=== PATIENT | male | born 1950 | race Caucasian/White ===

== ENCOUNTER 2020-08-20 09:36 | Emergency (ER) | payer MEDICARE, MEDICAID ==
[~2020-08-20] VITALS: Ht 182.9 cm; Wt 118.2 kg
[~2020-08-20 09:36] MED LIST: FENO150C3 PO; GABA-585 PO; HYDR-2769 PO; INSU100I13 SQ; INSU100I17 SQ; INSU100I27 SQ; MAGN400C PO; METF500T16 PO; METO-239 PO
--- NOTE | 2020-08-20 10:04 | PHYS DOC ---
Past History Past Medical History: Diabetes, Hypertension Past Surgical History: No Surgical History Alcohol Use: None Drug Use: None General Adult EDM: Chief Complaint: MULTIPLE COMPLAINTS HPI: HPI: Patient is a 70 male coming in for bilateral flank pain that woke him sleep this morning. Patient states is not the strength as he has been dehydrated. She tried drinking a glass of water without improvement. Straight back pain or problems. No recent injuries. Denies any dysuria, hematuria, urinary frequency. Has any fevers, cough, chest pain. Had one episode of emesis this morning but denies any diarrhea constipation. Denies any history of kidney stones or kidney infections. Patient later stated that he has had couple of weeks of vomiting. States he has been seen a couple of other times for dehydration. Review of Systems: Review of Systems: All other systems within normal limits except for as noted in the HPI Allergies: Allergies: Allergies Coded Allergies Type Severity Reaction Last Updated Verified No Known Drug Allergies 08/20/20 No Physical Exam: PE: Constitutional: Well developed, well nourished, no acute distress, non-toxic appearance. [] HENT: Normocephalic, atraumatic, bilateral external ears normal, nose normal. [] Eyes: PERRLA, conjunctiva normal, no discharge. [] Neck: No rigidity, supple, no stridor. [] Cardiovascular: Regular rate and rhythm, brisk cap refill [] Lungs & Thorax: Non labored symmetric respirations, no tachypnea or respiratory distress [] Abdomen: Soft, nondistended. Skin: Warm, dry, no erythema, no rash. [] Back: Unremarkable, bilateral CVA tenderness, no point spinal tenderness, no step-off or deformity. Extremities: No deformities, range of motion grossly intact, no lower extremity edema [] Neurologic: Alert and oriented X 3, no focal deficits noted. [] Psychologic: Affect normal, judgement normal, mood normal. [] EKG: EKG: Sinus tachycardia, heart rate 112 bpm, right axis deviation, no ST elevation or depression, bundle-branch block. [] Radiology/Procedures: Radiology/Procedures: ADDENDUM ADDENDUM #1 Addendum: As noted in the findings section of the report, there is chol elithiasis. Electronically signed by: Kate Olvera MD (08/20/2020 1:32 PM) [facility] ORIGINAL REPORT EXAM: Abdomen and pelvis CT with intravenous contrast. HISTORY: Pancreatitis. TECHNIQUE: Computed tomographic images of the abdomen and pelvis were obtained following the administration of intravenous contrast. Multiplanar reformatting was performed. *One or more of the following individualized dose reduction techniques were utilized for this examination: 1. Automated exposure control. 2. Adjustment of the mA and/or kV according to patient size. 3. Use of iterative reconstruction technique. COMPARISON: None. FINDINGS: Evaluation of the lower thorax demonstrates posterior dependent and basilar atelectasis. There is calcific lesion of the aortic valve. There is coronary artery atherosclerosis. There is fluid within the patulous distal esophagus. There is a tiny hiatal hernia. There is hepatic steatosis. There are small hypodense lesions within the liver, likely representing cysts. There is cholelithiasis. There is no pancreatic lesion or convincing pancreatitis. The spleen is normal in size. The adrenal gl ands are unremarkable. There is no hydronephrosis. There is nonspecific perinephric stranding. There are tiny renal cortical cysts. Follow-up is not routinely performed for simple cysts. There is no appendicitis. There is no bowel obstruction. The urinary bladder is unremarkable. There are calcifications within a prominent prostate. There are small fat-containing supraumbilical and umbilical hernias. There is stranding throughout the root of mesentery. There is no lymphadenopathy. The aorta is normal in caliber. There is no suspicious osseous lesion. IMPRESSION: 1. No convincing CT evidence of acute pancreatitis. 2. Stranding throughout the root of the mesentery. This can be seen with mesenteric panniculitis. 3. Multiple small hypodense lesions within the liver. In the absence of known malignancy, these are likely cysts. 4. Small hiatal hernia and fat-containing umbilical and superimposed focal hernias. 5. Hepatic steatosis. [] Heart Score: C/O Chest Pain: No Risk Factors: Risk Factors: DM, Current or recent (<one month) smoker, HTN, HLP, family history of CAD, obesity. Risk Scores: Score 0 - 3: 2.5% MACE over next 6 weeks - Discharge Home Score 4 - 6: 20.3% MACE over next 6 weeks - Admit for Clinical Observation Score 7 - 10: 72.7% MACE over next 6 weeks - Early Invasive Strategies Course & Med Decision Making: Course & Med Decision Making Pertinent Labs and Imaging studies reviewed. (See chart for details) Patient given fluids and return to normal heart rate, tolerating p.o. Mild elevation in lipase less than 3 times upper limit of normal. Also has some stranding suggestive of mesenteric panniculitis on CT. Labs otherwise unremarkable. There is cholelithiasis but no CT evidence or labs indicated of of a biliary obstructive process. Discussed extensive return precautions with and . Will discharge with instructions for mild pancreatitis. Counseled patient and on diet and refraining from alcohol use. [] Dragon Disclaimer: Dragon Disclaimer: This electronic medical record was generated, in whole or in part, using a voice recognition dictation system. Departure Departure: Impression: Primary Impression: Pancreatitis Additional Impression: Dehydration, mild Disposition: HOME / SELF CARE / HOMELESS Condition: STABLE Referrals: PCP,NO (PCP) Patient Instructions: Acute Pancreatitis, [id number], Clear Liquid Diet, [id number] Additional Instructions: Return immediately to the emergency department for symptoms such as yellowing of the skin, fevers, uncontrollable pain or vomiting despite taking her medications. Clear liquid diet at home, may progress to soft foods as tolerated based on pain. Follow-up with your primary care physician on the next business day. Scripts Hydrocodone Bit/Acetaminophen (HYDROCODONE-APAP 7.5-325 ) 1 Each Tablet 1 TAB PO PRN Q6HRS PRN for PAIN for 5 Days, #20 TAB 0 Refills Prov: STACEY BOWLES MD 08/20/20 Ondansetron (ONDANSETRON ODT) 4 Mg Tab.rapdis 1 TAB PO PRN Q6-8HRS PRN for NAUSEA for 5 Days, #16 TAB Prov: STACEY BOWLES MD 08/20/20 STACEY BOWLES MD August 20, 2020 10:03
[2020-08-20] MEDS ORDERED: IV NORMAL SALINE 1,000ML 1,000 ML IV ONE ×3 (10:15→14:00)
[2020-08-20 10:46] LABS: BASO % 0 % (0-3); EOS % 0 % (0-3); HEMOGLOBIN 13.2 g/dL (13.0-17.5); LYMPH # 0.3 x10^3/uL (1.0-4.8); LYMPH % 2 % (24-48); MEAN CORPUSCULAR HEMOGLOBIN 29 pg (25-35); MEAN CORPUSCULAR HGB CONC 32 g/dL (31-37); MEAN CORPUSCULAR VOLUME 91 fL (79-100); MONO # 0.4 x10^3/uL (0.0-1.1); MONO % 4 % (0-9); NEUT # 12.2 x10^3uL (1.8-7.7); NEUT % 94 % (31-73); PLATELET COUNT 247 x10^3/uL (140-400); RED BLOOD COUNT 4.53 x10^6/uL (4.30-5.70); RED CELL DISTRIBUTION WIDTH 14.5 % (11.5-14.5)
[2020-08-20 10:55] LABS: CREATININE 1.1 mg/dL (0.7-1.3); GFR 65.8; POTASSIUM 3.5 mmol/L (3.5-5.1)
[2020-08-20 11:07] LABS: ALBUMIN 3.2 g/dL (3.4-5.0); MAGNESIUM 1.4 mg/dL (1.8-2.4); TOTAL BILIRUBIN 0.5 mg/dL (0.2-1.0); TOTAL PROTEIN 6.4 g/dL (6.4-8.2)
--- NOTE | 2020-08-20 11:36 | EKG ---
[address] [address] Test Date: 2020-08-20 Test Time: 10:31:27 Pat Name: LUZMARIA LOPEZ Department: Room: Gender: M Environmental Compliance Technician: : 1950 Requested By: STACEY BOWLES Order Number: [id number] Reading MD: Measurements Intervals [place] Rate: 112 P: 40 [place]: 160 QRS: 100 QRSD: 128 T: 172 QT: 334 QTc: 458 Interpretive Statements SINUS TACHYCARDIA ATRIAL PREMATURE COMPLEX(ES) RIGHTWARD AXIS RIGHT BUNDLE BRANCH BLOCK RVH WITH REPOLARIZATION ABNORMALITY QRS(T) CONTOUR ABNORMALITY CONSIDER INFERIOR INFARCT ABNORMAL ECG RI6.02 No previous ECG available for comparison
[2020-08-20 12:31] LABS: BILIRUBIN,URINE NEG (NEG); CLARITY,URINE CLEAR; COLOR,URINE AMBER; GLUCOSE,URINE 100 mg/dL (NEG); NITRITE,URINE NEG (NEG); UROBILINOGEN,URINE 0.2 mg/dL (0.2 mg/dL)
[2020-08-20 12:33] LABS: BARBITURATES NEG (NEG); BENZODIAZEPINES NEG (NEG); CANNABINOIDS NEG (NEG); COCAINE NEG (NEG); METHADONE NEG (NEG); OPIATES NEG (NEG); PHENCYCLIDINE NEG (NEG)
[2020-08-20 12:34] LABS: BACTERIA,URINE 0 /HPF (0-FEW); RBC,URINE 0 /HPF (0-2); WBC,URINE 0 /HPF (0-4)
[2020-08-20 12:37] LABS: AMPHETAMINE/METHAMPHETAMINE NEG (NEG)
[2020-08-20] MEDS ORDERED: IOHEXOL 300 MG/ML 75 ML VIAL. IV ONE (13:00)
[2020-08-20] MEDS ORDERED: CONTRAST GIVEN. MC PRN (13:15)
--- NOTE | 2020-08-20 13:27 | RAD ---
EXAM: Abdomen and pelvis CT with intravenous contrast. HISTORY: Pancreatitis. TECHNIQUE: Computed tomographic images of the abdomen and pelvis were obtained following the administ ration of intravenous contrast. Multiplanar reformatting was performed. *One or more of the following individualized dose reduction techniques were utilized for this examina tion: 1. Automated exposure control. 2. Adjustment of the mA and/or kV according to patient size. 3. Use of iterative reconstruction technique. COMPARISON: None. FINDINGS: Evaluation of the lower thorax demonstrates posterior dependent and basilar atelectasis. Th ere is calcific lesion of the aortic valve. There is coronary artery atherosclerosis. There is fluid within the patulous distal esophagus. There is a tiny hiatal hernia. There is hepatic steatosis. There are small hypodense lesions within the liver, likely representing c ysts. There is cholelithiasis. There is no pancreatic lesion or convincing pancreatitis. The spleen i s normal in size. The adrenal glands are unremarkable. There is no hydronephrosis. There is nonspecif ic perinephric stranding. There are tiny renal cortical cysts. Follow-up is not routinely performed f or simple cysts. There is no appendicitis. There is no bowel obstruction. The urinary bladder is unremarkable. There a re calcifications within a prominent prostate. There are small fat-containing supraumbilical and umbi lical hernias. There is stranding throughout the root of mesentery. There is no lymphadenopathy. The aorta is normal in caliber. There is no suspicious osseous lesion. IMPRESSION: 1. No convincing CT evidence of acute pancreatitis. 2. Stranding throughout the root of the mesentery. This can be seen with mesenteric panniculitis. 3. Multiple small hypodense lesions within the liver. In the absence of known malignancy, these are l ikely cysts. 4. Small hiatal hernia and fat-containing umbilical and superimposed focal hernias. 5. Hepatic steatosis. Electronically signed by: Kate Olvera MD (08/20/2020 1:25 PM) [facility]
[2020-08-20] MEDS ORDERED: ONDANSETRON PF 4 MG/2 ML VIAL. IVP ONE (13:45)
[2020-08-20] MEDS ORDERED: HYDROcodone/APAP 5/325MG 1 TAB TABLET PO ONE (14:00)
[2020-08-20 14:30] VITALS: BP 116/64
[2020-08-20] MEDS ORDERED: ONDA4TAB12 PO (14:30)
[2020-08-20] MEDS ORDERED: HYDR-2765 PO (14:30)
== END 2020-08-20 14:30 | disposition home or self-care (01) ==
LOC: ER 09:36
DX: K85.90 Acute pancreatitis without necrosis or infection, unspecified (principal); E86.0 Dehydration; E11.9 Type 2 diabetes mellitus without complications; I10 Essential (primary) hypertension
CPT/HCPCS: 36415; 74177; 80053; 80307; 81001; 83605; 83690; 83735; 83880; 84484; 85025; 93005; 96361; 96374; 96375; 99285; G0480; J2405; J3010; J7030; Q9967

== ENCOUNTER 2020-09-12 16:32 | Emergency (ER) | payer MEDICARE, MEDICAID ==
[~2020-09-12] VITALS: Ht 182.9 cm; Wt 130.0 kg
[~2020-09-12 16:32] MED LIST changes: +HYDR-2765 PO; +ONDA4TAB12 PO
--- NOTE | 2020-09-12 16:50 | PHYS DOC ---
Past History Past Medical History: Diabetes, High Cholesterol, Other Additional Past Medical Histor: GOUT (STACEY COTTRELL MD) Past Surgical History: No Surgical History (STACEY COTTRELL MD) Alcohol Use: None Drug Use: None (STACEY COTTRELL MD) General Adult EDM: Chief Complaint: CHEST PAIN HPI: HPI: Patient is a 70-year-old male coming in for chest pain. Patient states the pain started 20 minutes prior to arrival. This is a pain started in his right abdomen but they quickly moved to his chest and his left arm. Describes the pain as "getting punched in the chest" and is concerned he is having a heart attack. Patient denies any prior cardiac history and has not had this kind of pain in the past. Patient is a history of diabetes, hypertension, dyslipidemia. Patient states he is compliant on his medications and his blood glucose at home was 150. Patient is a history of DVT was anticoagulated for 1 year but is not currently taking anticoagulants. Family history of stroke and heart attack in father. Denies any history of tobacco use or alcohol use. States he was otherwise feeling well prior to symptoms starting. Patient states he was sitting on his couch when the pain began. States he felt a little bit lightheaded and nauseous but denies any vomiting. (STACEY COTTRELL MD) Review of Systems: Review of Systems: All other systems within normal limits except for as noted in the HPI (STACEY COTTRELL MD) Current Medications: Current Meds: Current Medications Medications (Trade) Dose Ordered Sig/Efren Start Time Stop Time Status Last Admin Dose Admin Nitroglycerin (Nitrostat) 0.4 mg PRN Q5MIN PRN 09/12/20 16:45 UNV (STACEY COTTRELL MD) Allergies: Allergies: Allergies Coded Allergies Type Severity Reaction Last Updated Verified No Known Drug Allergies 08/20/20 No (STACEY COTTRELL MD) Physical Exam: PE: Constitutional: Well developed, well nourished, no acute distress, non-toxic appearance. [] HENT: Normocephalic, atraumatic, bilateral external ears normal, nose normal. [] Eyes: PERRLA, conjunctiva normal, no discharge. [] Neck: No rigidity, supple, no stridor. [] Cardiovascular: Regular rate and rhythm, brisk cap refill [] Lungs & Thorax: Non labored symmetric respirations, no tachypnea or respiratory distress [] Abdomen: Soft, nondistended. Skin: Warm, dry, no erythema, no rash. [] Back: Unremarkable Extremities: No deformities, range of motion grossly intact, no lower extremity edema [] Neurologic: Alert and oriented X 3, no focal deficits noted. [] Psychologic: Affect normal, judgement normal, mood normal. [] (STACEY COTTRELL MD) EKG: EK: Sinus rhythm, heart rate 80 bpm, incomplete right bundle-branch block, no ST elevation or depression, no ectopy. (Right bundle branch block present on ECG dated 08-20-20) 1719: Sinus rhythm, heart rate 90 bpm, no ST elevation or depression, no significant change from previous EKG (STACEY COTTRELL MD) Radiology/Procedures: Radiology/Procedures: ROCEDURE: CHEST AP ONLY XR CHEST 1V CLINICAL INDICATIONS: Reason: chest pain / Spl. Instructions: / History: COMPARISON: October 11, 2014. Findings: Decreased lung volumes are seen. This may be related to the patient's larger body habitus. No acute lung infiltrate or pleural effusion or pulmonary edema or lung mass or pneumothorax is seen. The heart size, pulmonary vasculature, mediastinum and both geraldine are unremarkable. IMPRESSION: No acute radiographic abnormality is seen. [] (STACEY COTTRELL MD) Heart Score: C/O Chest Pain: Yes HEART Score for Chest Pain: HEART Score for Chest Pain Response (Comments) Value History Moderately Suspicious 1 ECG Nonspecific Repolarizatio 1 Age > 65 2 Risk Factors >3 Risk Factors or Hx CAD 2 Troponin < Normal Limit 0 Total 6 Risk Factors: Risk Factors: DM, Current or recent (<one month) smoker, HTN, HLP, family history of CAD, obesity. Risk Scores: Score 0 - 3: 2.5% MACE over next 6 weeks - Discharge Home Score 4 - 6: 20.3% MACE over next 6 weeks - Admit for Clinical Observation Score 7 - 10: 72.7% MACE over next 6 weeks - Early Invasive Strategies (STACEY COTTRELL MD) C/O Chest Pain: Yes HEART Score for Chest Pain: HEART Score for Chest Pain Response (Comments) Value History Moderately Suspicious 1 ECG Nonspecific Repolarizatio 1 Age > 65 2 Risk Factors 1 or 2 Risk Factors 1 Troponin < Normal Limit 0 Total 5 (KIESHA BOJORQUEZ MD) Course & Med Decision Making: Course & Med Decision Making Patient is a heart score 6. Repeat ECG shows no change initial troponin undetectable. Pending repeat Trope at shift change. (STACEY COTTRELL MD) Course & Med Decision Making See Dr. Cottrell chart for details prior shift change. Pt. currently without complaints at 1800 hrs. My interpretation of EKG at 1939 hrs. shows a sinus rhythm with a bundle branch block. Rate of 72 no acute overall morphology changes for EKG since 1643 hrs. No acute changes on serial EKGs. 2 - troponin test for 0.017. Patient elects to be discharged home with follow-up with cardiology. Patient return if any concerns. Patient take meds as directed. Impression: 1. Atypical chest pain 2. Mild anemia hemoglobin 12.6 3. Diabetes glucose 132 4. History of coronary artery disease (KIESHA BOJORQUEZ MD) Dragon Disclaimer: Dragon Disclaimer: This electronic medical record was generated, in whole or in part, using a voice recognition dictation system. (STACEY COTTRELL MD) Departure Departure: Referrals: PCP,NO (PCP) STACEY COTTRELL MD September 12, 2020 16:50 KIESHA BOJORQUEZ MD September 12, 2020 18:46
[2020-09-12] MEDS: ASPIRIN CHEWABLE 81 MG TABLET. PO ONE (17:06)
[2020-09-12] MEDS: NITROGLYCERIN SUBLINGUAL 0.4 MG BOTTLE OF 25. SL PRN (17:07)
--- NOTE | 2020-09-12 17:09 | RAD ---
XR CHEST 1V CLINICAL INDICATIONS: Reason: chest pain / Spl. Instructions: / History: COMPARISON: October 11, 2014. Findings: Decreased lung volumes are seen. This may be related to the patient's larger body habitus. No acute lung infiltrate or pleural effusion or pulmonary edema or lung mass or pneumothorax is seen. The heart size, pulmonary vasculature, mediastinum and both geraldine are unremarkable. IMPRESSION: No acute radiographic abnormality is seen. Electronically signed by: Haroldo Arzate MD (09/12/2020 5:07 PM) [id number]
[2020-09-12 17:26] LABS: BASO # 0.1 x10^3/uL (0.0-0.2); BASO % 1 % (0-3); CALCIUM 8.7 mg/dL (8.5-10.1); CREATININE 1.2 mg/dL (0.7-1.3); EOS # 0.2 x10^3/uL (0.0-0.7); EOS % 2 % (0-3); GFR 59.5; HEMATOCRIT 38.4 % (39.0-53.0); HEMOGLOBIN 12.6 g/dL (13.0-17.5); LYMPH % 22 % (24-48); MEAN CORPUSCULAR HEMOGLOBIN 30 pg (25-35); MEAN CORPUSCULAR HGB CONC 33 g/dL (31-37); MEAN CORPUSCULAR VOLUME 91 fL (79-100); MONO # 0.8 x10^3/uL (0.0-1.1); MONO % 9 % (0-9); NEUT # 5.9 x10^3uL (1.8-7.7); NEUT % 65 % (31-73); PLATELET COUNT 284 x10^3/uL (140-400); POTASSIUM 3.8 mmol/L (3.5-5.1); RED BLOOD COUNT 4.24 x10^6/uL (4.30-5.70); RED CELL DISTRIBUTION WIDTH 14.4 % (11.5-14.5); WHITE BLOOD COUNT 9.1 x10^3/uL (4.0-11.0)
[2020-09-12 17:38] LABS: ALBUMIN 3.1 g/dL (3.4-5.0); ALBUMIN/GLOBULIN RATIO 0.8 (1.0-1.7); MAGNESIUM 1.6 mg/dL (1.8-2.4); TOTAL BILIRUBIN 0.3 mg/dL (0.2-1.0); TOTAL PROTEIN 6.9 g/dL (6.4-8.2)
--- NOTE | 2020-09-12 18:55 | EKG ---
[address] [address] Test Date: 2020-09-12 Test Time: 17:19:03 Pat Name: LUZMARIA LOPEZ Department: Room: Gender: M Ecologist: EMILY : 1950 Requested By: STACEY BOWLES Order Number: [id number] Reading MD: Keven Schwab Measurements Intervals [place] Rate: 92 P: 3 ID: 150 QRS: -66 QRSD: 112 T: 15 QT: 366 QTc: 458 Interpretive Statements SINUS RHYTHM ATRIAL PREMATURE COMPLEX(ES) LEFT ANTERIOR FASCICULAR BLOCK RIGHT BUNDLE BRANCH BLOCK ABNORMAL ECG Electronically Signed On 09-13-2020 14:58:53 CDT by Keven Schwab
--- NOTE | 2020-09-12 18:56 | EKG ---
[address] [address] Test Date: 2020-09-12 Test Time: 16:43:31 Pat Name: LUZMARIA LOPEZ Department: Room: Gender: M Community Living Coach: : 1950 Requested By: STACEY BOWLES Order Number: [id number] Reading MD: Keven Schwab Measurements Intervals [place] Rate: 89 P: 26 [place]: 156 QRS: 7 QRSD: 118 T: 33 QT: 366 QTc: 446 Interpretive Statements SINUS RHYTHM RIGHT BUNDLE BRANCH BLOCK Electronically Signed On 09-13-2020 14:59:16 CDT by Keven Schwab
[2020-09-12 19:20] LABS: BILIRUBIN,URINE NEG (NEG); CLARITY,URINE CLEAR; COLOR,URINE YELLOW; GLUCOSE,URINE NEG (NEG); NITRITE,URINE NEG (NEG); UROBILINOGEN,URINE 0.2 mg/dL (0.2 mg/dL)
[2020-09-12 19:21] LABS: BACTERIA,URINE 0 /HPF (0-FEW); RBC,URINE 0 /HPF (0-2); SQUAMOUS EPITHELIAL CELL,UR OCC /LPF; WBC,URINE 0 /HPF (0-4)
[2020-09-12 19:22] LABS: BARBITURATES NEG (NEG); BENZODIAZEPINES NEG (NEG); CANNABINOIDS NEG (NEG); COCAINE NEG (NEG); METHADONE NEG (NEG); OPIATES NEG (NEG); PHENCYCLIDINE NEG (NEG)
[2020-09-12 19:28] LABS: AMPHETAMINE/METHAMPHETAMINE NEG (NEG)
[2020-09-12 20:05] VITALS: BP 150/87
--- NOTE | 2020-09-12 21:56 | EKG ---
[address] [address] Test Date: 2020-09-12 Test Time: 19:39:00 Pat Name: LUZMARIA LOPEZ Department: Room: Gender: M Record Center Specialist: : 1950 Requested By: KIESHA BOJORQUEZ Order Number: [id number] Reading MD: Keven Schwab Measurements Intervals [place] Rate: 72 P: 47 CT: 158 QRS: 18 QRSD: 98 T: 23 QT: 388 QTc: 426 Interpretive Statements SINUS RHYTHM LOW LIMB LEAD VOLTAGE INCOMPLETE RIGHT BUNDLE BRANCH BLOCK Electronically Signed On 09-13-2020 14:57:02 CDT by Keven Schwab
== END 2020-09-12 20:07 | disposition home or self-care (01) ==
LOC: ER 16:32
DX: R07.89 Other chest pain (principal); D64.9 Anemia, unspecified; E11.9 Type 2 diabetes mellitus without complications; I25.10 Atherosclerotic heart disease of native coronary artery without angina pectoris; E78.5 Hyperlipidemia, unspecified; I10 Essential (primary) hypertension; E78.00 Pure hypercholesterolemia, unspecified; Z86.718 Personal history of other venous thrombosis and embolism
CPT/HCPCS: 36415; 71045; 80053; 80307; 81001; 83605; 83735; 83880; 84484; 85025; 85379; 93005; 99285; G0480

== ENCOUNTER 2020-11-01 05:28 | Emergency (ER) | payer MEDICARE, MEDICAID ==
[~2020-11-01] VITALS: Ht 182.9 cm; Wt 124.0 kg
[2020-11-01 05:28] VITALS: BP 154/89
--- NOTE | 2020-11-01 05:34 | PHYS DOC ---
Past History Past Medical History: Diabetes, High Cholesterol, Hypertension, Other Additional Past Medical Histor: GOUT, hiatal hernia (KIESHA OLIVA MD) Past Surgical History: Other Additional Past Surgical Histo: hiatal hernia (KIESHA OLIVA MD) Alcohol Use: None Drug Use: None (KIESHA OLIVA MD) General Adult HPI: HPI: " ..My legs are killing me..I was looking on the internet..and it says I may meredith ve blood clots...I did start working out at the Gym the last four days..running on the treadmill and using the bicycle machine.... " Patient is a 70 year old male who presents with above hx and complaints of bilateral leg pain. Patient localizes pain in both lower and upper muscle groups of both legs. Patient denies any prior history of DVTs or coagulopathy with him or family members. No recent travel. No specific ill contacts. No history immunosuppression. Patient states he been aggressively working out to lose weight. Patient very concerned he may have developed blood clots in both legs from working out, based on his Internet searches. Patient normally follows with [facility] for care. Patient has past medical history of rhabdomyolysis, hypokalemia, hypomagnesium, diabetes, elevated lipids chronic low back pain, diabetic neuropathy, right bicep tendon rupture, cellulitis, and arthritic complaints. (KIESHA OLIVA MD) Review of Systems: Review of Systems: Constitutional: Denies fever or chills Eyes: Denies change in visual acuity HENT: Denies nasal congestion or sore throat Respiratory: Denies cough or shortness of breath Cardiovascular: Denies chest pain or edema GI: Denies abdominal pain, nausea, vomiting, bloody stools or diarrhea : Denies dysuria Musculoskeletal: Complains of bilateral leg pain Integument: Denies rash Neurologic: Denies headache, focal weakness or sensory changes Endocrine: Denies polyuria or polydipsia Lymphatic: Denies swollen glands Psychiatric: Denies depression or anxiety (KIESHA OLIVA MD) Family History: Family History: Noncontributory presentation. Mother lived to age 91. Father because of heart problems. Diabetic Beatties runs in the family. Has 2 sisters Alzheimer's disease he is 1 of 9 children (KIESHA OLIVA MD) Current Medications: Current Meds: See nursing for home meds (KIESHA OLIVA MD) Allergies: Allergies: Allergies Coded Allergies Type Severity Reaction Last Updated Verified No Known Drug Allergies 08/20/20 No (KIESHA OLIVA MD) Physical Exam: PE: Constitutional: Moderate acute distress, non-toxic appearance. [] HENT: Normocephalic, atraumatic, bilateral external ears normal, oropharynx moist, no oral exudates, nose normal. [] Eyes: PERRLA, EOMI, conjunctiva normal, no discharge. [] Neck: Normal range of motion, no tenderness, supple, no stridor. [] Cardiovascular:Heart rate regular rhythm, no murmur [, PMI to the left Lungs & Thorax: Bilateral breath sounds equal at apex auscultation [] Abdomen: Bowel sounds normal, soft, no tenderness, no masses, no pulsatile masses. Obese Skin: Warm, dry, no erythema, no rash. [] Back: No tenderness, no CVA tenderness. [] Extremities: Bilateral leg tenderness, no cyanosis, no clubbing, ROM intact, no edema. [] Neurologic: Alert and oriented X 3, moves all extremities on request, normal sensory function in upper limbs, no focal deficits noted. [] Peripheral neuropathy in feet bilaterally Psychologic: Affect anxious, judgement normal, mood normal. [] (KIESHA OLIVA MD) PE: Constitutional: Well developed, well nourished, no acute distress, non-toxic appearance HENT: Normocephalic, atraumatic Eyes: Conjunctiva normal, no discharge Neck: Normal range of motion, supple Lungs & Thorax: No respiratory distress, equal chest rise and fall Skin: Warm, dry, no erythema, no rash Extremities: No calf tenderness, ROM intact, no significant edema Neurologic: Alert and oriented X 3, no focal deficits noted Psychologic: Affect normal, judgment normal (MARIANA WATSON DO) EKG: EKG: [] (KIESHA OLIVA MD) EKG: @0707 NSR at 94bpm, RBBB, NO ST elevation, QRS 118ms, QT/QTc 354/443ms (MARIANA WATSON DO) Radiology/Procedures: Radiology/Procedures: [] (KIESHA OLIVA MD) Heart Score: C/O Chest Pain: N/A Risk Factors: Risk Factors: DM, Current or recent (<one month) smoker, HTN, HLP, family history of CAD, obesity. Risk Scores: Score 0 - 3: 2.5% MACE over next 6 weeks - Discharge Home Score 4 - 6: 20.3% MACE over next 6 weeks - Admit for Clinical Observation Score 7 - 10: 72.7% MACE over next 6 weeks - Early Invasive Strategies (KIESHA OLIVA MD) Course & Med Decision Making: Course & Med Decision Making Pertinent Labs and Imaging studies reviewed. (See chart for details) Patient endorsed to Dr. Watson at shift change. He will make disposition Impression: 1. Bilateral leg pain 2. History of diabetes 3. Suspect Muscle Over Use- Recent aggressive exercise program [] (KIESHA OLIVA MD) Course & Med Decision Making 0600- Sign out received from Dr. Oliva for patient with bilateral leg pain. Hx of recent increase in activity (exercise). Labs pending including d-dimer. D-dimer negative. Other labs unremarkable. EKG stable. Patient seen and evaluated by myself. Reports interval improvement after IVF and toradol. Patient stable for discharge with outpatient follow-up with PCP. Discussed findings and plan with patient, who acknowledges understanding and agreement. (MARIANA WATSON DO) Dragon Disclaimer: Dragon Disclaimer: This electronic medical record was generated, in whole or in part, using a voice recognition dictation system. (KIESHA OLIVA MD) Departure Departure: Impression: Primary Impression: Leg pain, bilateral Disposition: HOME / SELF CARE / HOMELESS Condition: STABLE Referrals: NICK GOTTLIEB (PCP) Patient Instructions: Leg Cramps, Musculoskeletal Pain Additional Instructions: Increase fluid hydration Scripts Naproxen (NAPROXEN) 375 Mg Tablet. 375 MG PO TID PRN PRN for PAIN, #20 TAB Prov: MARIANA WATSON DO 11/01/20 KIESHA OLIVA MD Nov 01, 2020 05:34 MARIANA WATSON DO Nov 01, 2020 07:57
[2020-11-01] MEDS ORDERED: IV RINGERS SOLUTION,LACTATED 1,000 ML IV SCH (06:30)
[2020-11-01 06:57] LABS: BASO # 0.1 x10^3/uL (0.0-0.2); BASO % 2 % (0-3); EOS # 0.1 x10^3/uL (0.0-0.7); EOS % 2 % (0-3); HEMOGLOBIN 13.5 g/dL (13.0-17.5); LYMPH # 0.7 x10^3/uL (1.0-4.8); LYMPH % 12 % (24-48); MEAN CORPUSCULAR HEMOGLOBIN 30 pg (25-35); MEAN CORPUSCULAR HGB CONC 33 g/dL (31-37); MEAN CORPUSCULAR VOLUME 92 fL (79-100); MONO # 0.8 x10^3/uL (0.0-1.1); MONO % 14 % (0-9); NEUT # 4.4 x10^3uL (1.8-7.7); NEUT % 71 % (31-73); PLATELET COUNT 228 x10^3/uL (140-400); RED BLOOD COUNT 4.47 x10^6/uL (4.30-5.70); WHITE BLOOD COUNT 6.2 x10^3/uL (4.0-11.0)
[2020-11-01] MEDS ORDERED: KETOROLAC 30 MG/ML VIAL. IVP ONE (07:00)
[2020-11-01 07:05] LABS: CALCIUM 9.1 mg/dL (8.5-10.1); CREATININE 1.2 mg/dL (0.7-1.3); GFR 59.5; POTASSIUM 4.3 mmol/L (3.5-5.1)
[2020-11-01 07:18] LABS: ALBUMIN 3.4 g/dL (3.4-5.0); DIRECT BILIRUBIN 0.1 mg/dL (0.0-0.2); MAGNESIUM 1.6 mg/dL (1.8-2.4); TOTAL BILIRUBIN 0.2 mg/dL (0.2-1.0); TOTAL PROTEIN 6.6 g/dL (6.4-8.2)
[2020-11-01] MEDS ORDERED: NAPR375T5 PO (07:54)
--- NOTE | 2020-11-01 19:30 | EKG ---
[address] [address] Test Date: 2020-11-01 Test Time: 07:07:13 Pat Name: LUZMARIA LOPEZ Department: Room: Gender: M Profile Grinder: RODNEY : 1950 Requested By: KIESHA BOJORQUEZ Order Number: [id number] Reading MD: Measurements Intervals [place] Rate: 94 P: 23 [place]: 156 QRS: 81 QRSD: 118 T: 40 QT: 354 QTc: 443 Interpretive Statements SINUS RHYTHM R-S TRANSITION ZONE IN V LEADS DISPLACED TO THE RIGHT LOW LIMB LEAD VOLTAGE INCOMPLETE RIGHT BUNDLE BRANCH BLOCK NO SPECIFIC ECG ABNORMALITIES RI6.02 No previous ECG available for comparison
== END 2020-11-01 08:07 | disposition home or self-care (01) ==
LOC: ER 05:28
DX: M79.605 Pain in left leg (principal); M79.604 Pain in right leg; E11.42 Type 2 diabetes mellitus with diabetic polyneuropathy; E78.00 Pure hypercholesterolemia, unspecified; I10 Essential (primary) hypertension; G89.29 Other chronic pain
CPT/HCPCS: 36415; 80048; 80076; 82550; 83735; 83880; 84443; 84484; 85025; 85379; 85610; 85730; 93005; 96361; 96374; 99284; J1885; J7120

== ENCOUNTER 2021-01-27 05:16 | Emergency (ER) | payer MEDICAID, MEDICARE ==
[~2021-01-27] VITALS: Ht 182.9 cm; Wt 122.3 kg
[~2021-01-27 05:16] MED LIST changes: +NAPR375T5 PO
[2021-01-27] MEDS ORDERED: FAMOTIDINE 20 MG/2 ML VIAL IVP ONE (05:30)
--- NOTE | 2021-01-27 05:36 | EKG ---
[address] [address] Test Date: 2021-01-27 Test Time: 05:19:28 Pat Name: LUZMARIA LOPEZ Department: Room: Gender: M Med Peds: : 1950 Requested By: EVELIN UNDERWOOD Order Number: [id number] Reading MD: Ron Robert Measurements Intervals [place] Rate: 68 P: 22 [place]: 160 QRS: 72 QRSD: 128 T: 36 QT: 396 QTc: 421 Interpretive Statements SINUS RHYTHM RIGHT BUNDLE BRANCH BLOCK Electronically Signed On 01-27-2021 15:36:50 CDT by Ron Robert
--- NOTE | 2021-01-27 05:43 | PHYS DOC ---
Past History Past Medical History: Diabetes, High Cholesterol, Hypertension, Other Additional Past Medical Histor: GOUT, hiatal hernia Past Surgical History: Other Additional Past Surgical Histo: hiatal hernia Alcohol Use: None Drug Use: None Adult General Chief Complaint Chief Complaint: ABDOMINAL PAIN HPI HPI Patient is a 70 year old male who presents with epigastric abdominal pain and not feeling well. The symptoms started around 2:30 AM this morning and are located in his lower chest and epigastric abdominal as well as somewhat diffuse mid abdomen area. He feels pressure and had 1 episode of vomiting. Denies any upper chest pain. Denies any shortness of breath, cough, fever or diarrhea. His nausea is better after having one episode of emesis. Abdominal pain is rated approximately 4-5 out of 10 in intensity. There is no radiation of the pain. Denies any back pain or flank pain. He has not had similar pain in the past previously. He denies any chronic heart disease but does have diabetes. Review of Systems Review of Systems Constitutional: Denies fever or chills Eyes: Denies change in visual acuity, redness, or eye pain HENT: Denies nasal congestion or sore throat Respiratory: Denies cough or shortness of breath Cardiovascular: No additional information not addressed in HPI GI: Just abdominal pain and nausea today but otherwise no chronic issues. : Denies dysuria or hematuria Musculoskeletal: Denies back pain or joint pain Integument: Denies rash or skin lesions Neurologic: Denies headache, focal weakness or sensory changes Endocrine: Denies polyuria or polydipsia All other systems were reviewed and found to be within normal limits, except as documented in this note. Allergies Allergies Allergies Coded Allergies Type Severity Reaction Last Updated Verified No Known Drug Allergies 08/20/20 No Physical Exam Physical Exam Constitutional: Well developed, well nourished, no acute distress, non-toxic appearance. HENT: Normocephalic, atraumatic, bilateral external ears normal, oropharynx moist, no oral exudates. Eyes: PERRLA, EOMI, conjunctiva normal, no discharge Neck: Normal range of motion, no tenderness, supple. Cardiovascular:Heart rate regular rhythm, no murmur Lungs & Thorax: Bilateral breath sounds clear to auscultation Abdomen: Obese, soft, diffuse epigastric mild tenderness on palpation along with some periumbilical tenderness but no left or right upper or lower quadrant tenderness noted. No hernia noted. Skin: Warm, dry, no erythema, no rash. Back: No tenderness, no CVA tenderness. Extremities: No tenderness, no cyanosis, no clubbing, ROM intact, no edema. Neurologic: Alert and oriented X 3, normal motor function, normal sensory function, no focal deficits noted. Psychologic: Affect normal, judgement normal, mood normal. EKG EKG Twelve-lead EKG shows 68 bpm normal sinus rhythm with right bundle branch block but no acute ST segment elevations or depressions noted. [] Radiology/Procedures Radiology/Procedures [] Heart Score C/O Chest Pain: Yes HEART Score for Chest Pain: HEART Score for Chest Pain Response (Comments) Value History Slighlty/Non-Suspicious 0 ECG Nonspecific Repolarizatio 1 Age > 65 2 Risk Factors 1 or 2 Risk Factors 1 Total 4 Risk Factors: Risk Factors: DM, Current or recent (<one month) smoker, HTN, HLP, family history of CAD, obesity. Risk Scores: Risk Factors: DM, Current or recent (<one month) smoker, HTN, HLP, family history of CAD, obesity. Course & Med Decision Making Course & Med Decision Making Pertinent Labs and Imaging studies reviewed. (See chart for details) Patient presents with complaint of diffuse abdominal pain in the epigastric and periumbilical area along with lower chest pain. The symptoms all started approximately 2 AM this morning and he had 1 episode of vomiting. Patient has IV inserted and Pepcid 20 mg intravenously given. In addition he has EKG done which does not show any acute ischemic changes. His laboratory studies including CBC, CMP, urinalysis, troponin and lactic acid are pending. I have also ordered imaging study in the form of CT scan of the abdomen and pelvis which is also pending. Patient is hemodynamically stable with heart rate of 74 and a blood pressure 141/94. He will be signed out to Dr. Calhoun at 6 AM on shift change. Dragon Disclaimer Dragon Disclaimer This electronic medical record was generated, in whole or in part, using a voice recognition dictation system. Departure Departure: Impression: Primary Impression: Abdominal pain Additional Impression: Chest pain Referrals: NICK GOTTLIEB (PCP) Problem Qualifiers EVELIN UNDERWOOD MD Jan 27, 2021 05:43
[2021-01-27] MEDS ORDERED: IOHEXOL 300 MG/ML 75 ML VIAL. IV ONE (05:45)
[2021-01-27] MEDS ORDERED: CONTRAST GIVEN. MC PRN (05:45)
[2021-01-27 06:04] LABS: BASO # 0.1 x10^3/uL (0.0-0.2); BASO % 1 % (0-3); EOS # 0.2 x10^3/uL (0.0-0.7); EOS % 2 % (0-3); HEMATOCRIT 39.6 % (39.0-53.0); HEMOGLOBIN 13.2 g/dL (13.0-17.5); LYMPH # 1.5 x10^3/uL (1.0-4.8); LYMPH % 16 % (24-48); MEAN CORPUSCULAR HEMOGLOBIN 31 pg (25-35); MEAN CORPUSCULAR HGB CONC 33 g/dL (31-37); MEAN CORPUSCULAR VOLUME 92 fL (79-100); MONO # 0.7 x10^3/uL (0.0-1.1); MONO % 8 % (0-9); NEUT # 6.9 x10^3uL (1.8-7.7); NEUT % 74 % (31-73); PLATELET COUNT 259 x10^3/uL (140-400); RED BLOOD COUNT 4.29 x10^6/uL (4.30-5.70); RED CELL DISTRIBUTION WIDTH 14.5 % (11.5-14.5); WHITE BLOOD COUNT 9.3 x10^3/uL (4.0-11.0)
[2021-01-27 06:16] LABS: CALCIUM 9.2 mg/dL (8.5-10.1); CREATININE 1.1 mg/dL (0.7-1.3); GFR 65.8; POTASSIUM 3.9 mmol/L (3.5-5.1)
[2021-01-27 06:22] LABS: ALBUMIN 3.4 g/dL (3.4-5.0); TOTAL BILIRUBIN 0.5 mg/dL (0.2-1.0); TOTAL PROTEIN 6.8 g/dL (6.4-8.2)
--- NOTE | 2021-01-27 06:57 | RAD ---
CT ABDOMEN+PELVIS W History: Reason: diffuse abdominal pain and vomiting Omni 300 75cc / Spl. Instructions: / History: Technique: After the administration of intravenous contrast, CT imaging was performed of the abdomen and pelvis. Multiplanar images are reviewed. Exposure: One or more of the following individualized dose reduction techniques were utilized for thi s examination: 1. Automated exposure control 2. Adjustment of the mA and/or kV according to patient size 3. Use of iterative reconstruction technique. Comparison: August 20, 2020 Findings: Lower chest: No consolidation or pleural effusion. Coronary artery calcifications. Abdomen and pelvis: Small hepatic hypodensities largest measures 1.4 cm. The spleen, adrenal glands, and pancreas are unremarkable. Cholelithiasis. No biliary ductal dilatation. Bilateral perinephric stranding, unchanged. Bilateral inferior renal hypodensities, unchanged and lik mikal cyst. No hydronephrosis. No renal calculus. Normal appearance of the urinary bladder. Mild colonic diverticulosis. Normal appendix. No evidence of bowel obstruction. Gerri mesentery with small mesenteric lymph nodes, similar compared to prior. No ascites. Unchanged p eriumbilical fat-containing hernia. Bones: No pathologic osseous lesions. Impression: 1. No acute abdominal or pelvic pathology. 2. Cholelithiasis. 3. Unchanged hepatic hypodensities. 4. Gerri mesentery with small mesenteric lymph nodes, can be seen with sclerosing mesenteritis, unch anged. Electronically signed by: Carson Moseley DO (01/27/2021 6:54 AM) [facility]
[2021-01-27] MEDS ORDERED: FAMO40TA4 PO (07:10)
[2021-01-27 07:15] VITALS: BP 136/83
[2021-01-28] MEDS ORDERED: PRED20TA PO (10:09)
== END 2021-01-27 07:16 | disposition home or self-care (01) ==
LOC: ER 05:16
DX: R10.13 Epigastric pain (principal); R07.9 Chest pain, unspecified; E11.9 Type 2 diabetes mellitus without complications; E78.5 Hyperlipidemia, unspecified; I10 Essential (primary) hypertension
CPT/HCPCS: 36415; 74177; 80053; 83605; 84484; 85025; 93005; 96374; 99285; J3490; Q9967

== ENCOUNTER 2021-01-28 08:58 | Emergency (ER) | payer MEDICARE ==
[~2021-01-28] VITALS: Ht 182.9 cm; Wt 122.3 kg
[~2021-01-28 08:58] MED LIST changes: +FAMO40TA4 PO
[2021-01-28 09:06] VITALS: BP 136/83
[2021-01-28] MEDS ORDERED: PRED20TA PO (10:09)
== END 2021-01-28 09:24 | disposition left against medical advice (07) ==
LOC: ER 08:58
DX: R10.9 Unspecified abdominal pain (principal); Z53.21 Procedure and treatment not carried out due to patient leaving prior to being seen by health care provider

== ENCOUNTER 2021-01-28 09:36 | Emergency (ER) | payer MEDICARE ==
[~2021-01-28] VITALS: Ht 182.9 cm; Wt 122.3 kg
[2021-01-28 09:42] VITALS: BP 140/83
[2021-01-28] MEDS ORDERED: LIDO:MAALOX 1:1 20 ML SINGLE DOSE. PO ONE (10:00)
[2021-01-28] MEDS ORDERED: predniSONE 20 MG TABLET PO ONE (10:00)
[2021-01-28] MEDS ORDERED: PRED20TA PO (10:09)
--- NOTE | 2021-01-28 10:09 | PHYS DOC ---
Past History Past Medical History: Diabetes, High Cholesterol, Hypertension, Other Additional Past Medical Histor: GOUT, hiatal hernia Past Surgical History: Other Additional Past Surgical Histo: hiatal hernia Alcohol Use: None Drug Use: None Adult General Chief Complaint Chief Complaint: ABDOMINAL PAIN [facility] HPI Patient is a 70-year-old male presenting for abdominal pain. He was here and subsequently discharged from our facility 1 day prior after comprehensive work- up concerning for mesenteric enteritis. Patient symptoms improved with ad ministered famotidine. I discussed potential need for steroids with close GI follow-up with patient but patient deferred and requested discharge with famotidine only given that he is asymptomatic at time of discharge. Nonetheless, patient reports he ate a large plate of spaghetti yesterday evening and ever since has been having ongoing abdominal discomfort. He has had occasional nausea but mostly admits abdominal discomfort without any fever, chest pain cough ripping or tearing sensation in torso, urinary symptoms or other concerning abnormalities. He is here for pain control Review of Systems Review of Systems Fourteen body systems of review of systems have been reviewed. See HPI for pertinent positives and negative responses, other mendez all other systems are negative, non-pertinent or non-contributory Allergies Allergies Allergies Coded Allergies Type Severity Reaction Last Updated Verified No Known Drug Allergies 08/20/20 No Physical Exam Physical Exam Constitutional: Well developed, well nourished, no acute distress, non-toxic appearance. HENT: Normocephalic, atraumatic, bilateral external ears normal, oropharynx moist, poor dentition, no oral exudates, nose normal. Eyes: PERRLA, EOMI, conjunctiva normal, no discharge. Neck: Normal range of motion, no tenderness, supple, no stridor. Cardiovascular: Heart rate regular, sinus rhythm, no murmurs rubs or gallops Lungs & Thorax: Bilateral breath sounds clear to auscultation Abdomen: Bowel sounds normal, soft, no tenderness, no masses, no pulsatile masses. Nonsurgical abdomen, no peritoneal signs Skin: Warm, dry, no erythema, no rash. Back: No tenderness, no CVA tenderness. Extremities: No tenderness, no cyanosis, no clubbing, ROM intact, no edema. Neurologic: Alert and oriented X 3, grossly normal motor & sensory function, no focal deficits noted. Psychologic: Affect normal, judgement normal, mood normal. Current Patient Data Vital Signs Vital Signs Date Time Temp Pulse Resp B/P (MAP) Pulse Ox O2 Delivery O2 Flow Rate FiO2 01/28/21 09:42 97.9 90 16 140/83 (102) 96 Room Air EKG EKG [] Radiology/Procedures Radiology/Procedures [] Heart Score C/O Chest Pain: No Risk Factors: Risk Factors: DM, Current or recent (<one month) smoker, HTN, HLP, family history of CAD, obesity. Risk Scores: Risk Factors: DM, Current or recent (<one month) smoker, HTN, HLP, family history of CAD, obesity. Course & Med Decision Making Course & Med Decision Making ABCs unremarkable History obtained, physical exam nonremarkable, recent comprehensive work-up performed within the last 24 hours reviewed. Patient has most likely diagnosis of mesenteric enteritis per CT imaging. I reviewed recent work-up and potential need to repeat this, patient deferred. States he knows that spaghetti is likely what flared his symptoms As such, given patient deferring further diagnostic work-up, decision was made to administer GI cocktail and start short-term steroid therapy. He has PCP follow-up this upcoming Saturday for ER follow-up which I feel is appropriate Strict return precautions discussed with good understanding by patient, all questions and concerns addressed prior to departure Dragon Disclaimer Dragon Disclaimer This electronic medical record was generated, in whole or in part, using a voice recognition dictation system. Departure Departure: Impression: Primary Impression: Sclerosing mesenteritis Referrals: NICK GOTTLIEB (PCP) Additional Instructions: As discussed prior to ER departure, your vitals and history and physical examination were unremarkable for any emergent or surgical findings. We reviewed your most recent comprehensive ER work-up performed in ER that was nonconcerning for any emergent or surgical findings. I did disclose primary diagnosis of sclerosing mesenteritis. You are initially discharged home because your symptoms were controlled with famotidine only. You ate a large bowl of spaghetti which likely flared this condition. As such, please avoid any hot, spicy, fatty, caffeinated foods and beverages. You have been given a new prescription for steroids which she should take as scheduled to completion. You will need to follow-up with your outpatient primary care physician as scheduled this upcoming Saturday as a referral to a precast molder might be indicated. If any concerning signs or symptoms present prior to outpatient follow-up please do not hesitate to come back for repeat evaluation Scripts Prednisone (PREDNISONE) 20 Mg Tablet 40 MG PO DAILY for sclerosing mesenteritis for 4 Days, #8 TAB Prov: FABY JURADO DO 01/28/21 FABY JURADO DO Jan 28, 2021 10:09
[2021-01-28] MEDS ORDERED: ACETAMINOPHEN 325 MG TABLET PO ONE (10:45)
== END 2021-01-28 11:04 | disposition home or self-care (01) ==
LOC: ER 09:36
DX: K65.4 Sclerosing mesenteritis (principal); E11.9 Type 2 diabetes mellitus without complications; E78.5 Hyperlipidemia, unspecified; I10 Essential (primary) hypertension
CPT/HCPCS: 99284; J7512